=== PATIENT | female | born 1965 | race Caucasian/White ===

== ENCOUNTER → 2016-11-26 | Outpatient (CLI) | payer BC ==
--- NOTE | 2016-11-26 15:01 | RAD ---
Indication irregular bleeding. Post ablation in 2009. Initially transabdominal scans were obtained. The initial transabdominal scans were supplemented with transvaginal scans. It will be assumed for the purposes of this dictation that the hCG status is negative. The uterus measures approximately 6.3 x 3.6 x 4.7 cm. The endometrium is diminutive compatible with the history of ablation. There is a septated 2 cm mass in the left adnexa likely reflecting cysts associated with the ovary. The right ovary is not seen. Free fluid or a significant adnexal mass is not apparent. IMPRESSION: Unremarkable uterus. Nonvisualization of the right ovary. Probable cysts associated with the left ovary
== END | disposition home or self-care (01) ==
LOC: US 14:11
PROVIDERS: ATTEND Obstetrics & Gynecology
DX: N92.6 Irregular menstruation, unspecified (principal)
CPT/HCPCS: 76830; 76856